=== PATIENT | male | born 1990 | race Caucasian/White ===

== ENCOUNTER 2018-09-09 04:37 | Emergency (ER) | payer OTHER ==
[~2018-09-09] VITALS: Ht 172.7 cm; Wt 79.4 kg
== END 2018-09-09 09:30 | disposition home or self-care (01) ==
LOC: ER 04:37
DX: K29.70 Gastritis, unspecified, without bleeding (principal); R10.11 Right upper quadrant pain

== ENCOUNTER 2019-09-06 18:54 | Emergency (ER) | payer OTHER ==
[~2019-09-06] VITALS: Ht 172.7 cm; Wt 79.4 kg
== END 2019-09-06 22:22 | disposition home or self-care (01) ==
LOC: ER 18:54
DX: Z03.818 Encounter for observation for suspected exposure to other biological agents ruled out (principal)